=== PATIENT | male | born 1955 | race Caucasian/White ===

== ENCOUNTER → 2019-05-14 | Outpatient (CLI) | payer OTHER ==
[~2019-05-14] MED LIST: ALLO300 PO; AMLO10; Aspirin EC81 MG PO; ELIQUIS5 M2 PO; FURO20 PO; HYDR100 PO; LAVAP17G PO; LEVSOD125 PO; Multivitamin1 EAC1 PO; NEBI10 PO; NEBI5; POTASSIUM; Terazosin HCl10 MG; VERA180ERB PO
[2019-05-14 11:40] LABS: Hematocrit 38.8 % (37.0-53.0); Hemoglobin 13.2 g/dL (13.5-17.5); Mean Corpuscular HGB 30.4 pg (26.0-34.0); Mean Corpuscular Volume 89 fL (80-100); Mean Platelet Volume 12.1 fL (9.1-12.4); Platelet Count 110 K/mm3 (150-400); RDW Coefficient Variation 12.8 % (11.7-14.2); RDW Standard Deviation 41.7 fL (35.1-46.3); Red Blood Cell Count 4.34 M/mm3 (4.30-5.90); White Blood Cell Count 7.71 K/mm3 (4.00-11.30)
[2019-05-14 11:46] LABS: Albumin, Blood 3.3 g/dL (3.4-5.0); Albumin/Globulin Ratio 0.8 (0.8-1.8); Calcium, Blood 8.6 mg/dL (8.5-10.1); Creatinine, Blood 1.56 mg/dL (0.60-1.20); Potassium, Blood 4.3 mmol/L (3.5-5.5); Total Protein, Blood 7.3 g/dL (6.4-8.2)
[2019-05-14 12:40] LABS: BAND PERCENT MAN 13 % (0-8); BASOPHILS PERCENT MAN 0 % (0-2); EOSINOPHILS PERCENT MAN 0 % (0-6); LYMPHOCYTES ABSOLUTE MAN 0.46 K/mm3 (0.84-5.20); LYMPHOCYTES PERCENT MAN 6 % (21-46); MONOCYTES ABSOLUTE MAN 0.46 K/mm3 (0.16-1.47); MONOCYTES PERCENT MAN 6 % (4-13); NEUTROPHILS ABSOLUTE MAN 6.78 K/mm3 (1.96-9.15); SEG NEUTROPHILS PERCENT MAN 75 % (41-73); TOTAL CELLS COUNTED 100
== END ==
LOC: LAB EV 11:31 → LAB SHORT 11:31
PROVIDERS: Emergency Medicine
DX: R50.9 Fever, unspecified (principal)
CPT/HCPCS: 80053; 85025; 87040

== ENCOUNTER 2019-06-04 06:26 | Day surgery (SDC) | payer OTHER ==
[~2019-06-04] VITALS: Ht 180.3 cm; Wt 113.0 kg
--- NOTE | 2019-06-04 07:47 | NUR ---
PT TOLERATES CARDIOVERSION WELL. VSS. NADN. SINUS RHYTHM ON MONITOR. CALL LIGHT WITHIN REACH. FAMILY AT BEDSIDE.
== END 2019-06-04 22:59 | disposition home or self-care (01) ==
LOC: MHTC 06:26
DX: I48.4 Atypical atrial flutter (principal); I44.1 Atrioventricular block, second degree; I10 Essential (primary) hypertension; Z88.1 Allergy status to other antibiotic agents; Z79.899 Other long term (current) drug therapy
CPT/HCPCS: 92960; 93005; 93010; 93306; 99152; J2250; J3010; J7030

== ENCOUNTER 2019-12-11 05:52 | Day surgery (SDC) | payer MEDICARE, OTHER ==
[~2019-12-11] VITALS: Ht 180.3 cm; Wt 118.0 kg
[~2019-12-11 05:52] MED LIST changes: -AMLO10; +AMLO10 PO; -LEVSOD125 PO; +LEVSOD137 PO
[2019-12-11] MEDS ORDERED: POTA10T PO (06:27)
[2019-12-11] MEDS ORDERED: SPIR25 PO (06:28)
[2019-12-11] MEDS ORDERED: TERA5 PO (06:28)
--- NOTE | 2019-12-11 08:10 | NUR ---
PT TOLERATED CARDIOVERSION WELL. VSS. NADN. PT IV DC'D. CATH INTACT. PRESSURE DSG APPLIED. PT VERBALIZES UNDERSTANDING WRITTEN AND VERBAL ORDERS. PT DC TO HOME VIA S/O.
== END 2019-12-11 22:54 | disposition home or self-care (01) ==
LOC: MHTC 05:52
DX: I48.4 Atypical atrial flutter (principal); I48.91 Unspecified atrial fibrillation; I11.9 Hypertensive heart disease without heart failure; E78.00 Pure hypercholesterolemia, unspecified; E66.3 Overweight; Z88.1 Allergy status to other antibiotic agents; Z79.01 Long term (current) use of anticoagulants; Z79.899 Other long term (current) drug therapy; Z68.38 Body mass index [BMI] 38.0-38.9, adult
CPT/HCPCS: 92960; 93005; 93010; 99152; J2250; J3010; J7030

== ENCOUNTER → 2020-10-26 | Outpatient (CLI) | payer MEDICARE, OTHER ==
[~2020-10-26] MED LIST changes: +AMIODARONE HCL200 M1 PO; +LOSA50 PO; +POTA10T PO; +SPIR25 PO; +TERA5 PO
== END ==
LOC: LAB SHORT 09:12 → PLD 09:12
DX: D22.5 Melanocytic nevi of trunk (principal); D22.39 Melanocytic nevi of other parts of face
CPT/HCPCS: 88305

== ENCOUNTER 2021-05-21 11:16 | Day surgery (SDC) | payer MEDICARE, OTHER ==
[~2021-05-21] VITALS: Ht 182.9 cm; Wt 122.8 kg
[~2021-05-21 11:16] MED LIST changes: +EUTHYROX125 MCG PO; +LOSARTAN POTAS100 M1 PO; +TIZA4 PO; +TRAM50 PO
== END 2021-05-21 13:30 | disposition home or self-care (01) ==
LOC: ORSCSDS 11:16
PROVIDERS: Internal Medicine Gastroenterology
PROC: 0DBM8ZX Excision of Descending Colon, Via Natural or Artificial Opening Endoscopic, Diagnostic (ICD-10-PCS; principal; 2021-05-21 12:30)
PROC: 0DBE8ZX Excision of Large Intestine, Via Natural or Artificial Opening Endoscopic, Diagnostic (ICD-10-PCS; principal; 2021-05-21 12:30)
DX: R19.4 Change in bowel habit (principal); Z86.010 Personal history of colon polyps; D12.4 Benign neoplasm of descending colon; K57.30 Diverticulosis of large intestine without perforation or abscess without bleeding; I10 Essential (primary) hypertension; I48.91 Unspecified atrial fibrillation; Z79.01 Long term (current) use of anticoagulants; G47.33 Obstructive sleep apnea (adult) (pediatric); E03.9 Hypothyroidism, unspecified; Z79.899 Other long term (current) drug therapy; E66.01 Morbid (severe) obesity due to excess calories; Z68.36 Body mass index [BMI] 36.0-36.9, adult
CPT/HCPCS: 88305; J2704; J7120

== ENCOUNTER 2022-10-04 08:30 | Day surgery (SDC) | payer MEDICARE, OTHER ==
[~2022-10-04] VITALS: Ht 182.9 cm; Wt 126.3 kg
[~2022-10-04 08:30] MED LIST changes: +GABA300 PO; +TIMOLOL MALEATE BOTHEYES
--- NOTE | 2022-10-04 12:06 | NUR ---
PT BELONGINGS PLACED UNDERNEATH GURNEY FOR SAFEKEEPING. PT GLASSES TAKEN TO PACU FOR SAFEKEEPING.
--- NOTE | 2022-10-04 13:41 | NUR ---
10/04/22 1341 Iraida Richards PT TO OR WITH BRUISING AROND RIGHT KNEE
--- NOTE | 2022-10-04 16:10 | NUR ---
PT ARRIVED TO THE ROOM AT 1607. PT ALERT AND ORIENTED UPON ARRIVAL TO THE ROOM. PT REPORTS DISCOMFORT TO HIS L KNEE. PT PROVIDED WITH CRACKERS, APPLESAUCE AND FLUIDS. PT'S NOTIFIED OF ARRIVAL TO THE ROOM POST-OP.
--- NOTE | 2022-10-04 20:03 | NUR ---
PT REPORTED NUMBNESS TO LLE POST OP. PT ASSESSED. BILAT PEDAL AND TIBIAL PULSES FAINT BUT PRESENT AND EQUAL. PT IS ABLE TO PLANTAR AND DORSAL FLEX. SENSATION ASSESSED USING ALCOHOL WIPE AND PT REPORTED HE WAS ABLE TO FEEL COOL/WET SENSATION FROM HIS FOOT TO HIS LEG. PT REPORTS DECREASED SENSATION TO BLE SINCE IOVERA TREATMENT PRE OP. PT WAS ABLE TO AMBULATE TO THE BATHROOM AND BACK SAFELY WITH ASSISTANCE. LOWELL YOUNG NOTIFIED OF DECREASED SENSATION TO LLE. LOWELL YOUNG ALSO PROVIDED ORDERS FOR ABX POST OP.
--- NOTE | 2022-10-04 20:19 | NUR ---
SHIFT SUMMARY PT IS POD#0 FROM L TKA WITH DR. IVORY. PT HAS BEEN OOB TO THE CHAIR AND AMBULATED. PT ATTEMPTED TO VOID BUT WAS UNABLE. PAIN IS MINIMAL AND MANAGED WITH PO PAIN MEDICATION. PT IS TOLERATING PO. PT REPORTED DECREASED SENSATION TO LLE, PER LOWELL YOUNG THIS COULD BE R/T IOVERA TREATMENT PRE-OP OR INTRAOPERATIVE NERVE BLOCK. REPORT GIVEN TO AMADO MARY.
[2022-10-05 05:08] LABS: BASOPHILS PERCENT AUTO 0 % (0-2); EOSINOPHILS PERCENT AUTO 0 % (0-6); Hematocrit 38.7 % (37.0-53.0); Hemoglobin 12.7 g/dL (13.5-17.5); IMMATURE GRAN ABSOLUTE AUTO 0.06 K/mm3 (0.00-0.10); IMMATURE GRAN PERCENT AUTO 1 % (0-1); LYMPHOCYTES ABSOLUTE AUTO 0.34 K/mm3 (0.84-5.20); LYMPHOCYTES PERCENT AUTO 5 % (21-46); MONOCYTES ABSOLUTE AUTO 0.28 K/mm3 (0.16-1.47); MONOCYTES PERCENT AUTO 4 % (4-13); Mean Corpuscular HGB 29.8 pg (26.0-34.0); Mean Corpuscular HGB Conc 32.8 g/dL (31.5-36.5); Mean Corpuscular Volume 91 fL (80-100); Mean Platelet Volume 12.2 fL (9.1-12.4); NEUTROPHILS ABSOLUTE AUTO 6.56 K/mm3 (1.96-9.15); NEUTROPHILS PERCENT AUTO 91 % (41-73); Platelet Count 137 K/mm3 (150-400); RDW Coefficient Variation 12.9 % (11.7-14.2); RDW Standard Deviation 42.4 fL (35.1-46.3); Red Blood Cell Count 4.26 M/mm3 (4.30-5.90); White Blood Cell Count 7.24 K/mm3 (4.00-11.30)
[2022-10-05 05:42] LABS: Bun/Creatinine Ratio 24.9 (12.0-20.0); Calcium, Blood 8.3 mg/dL (8.5-10.1); Creatinine, Blood 0.85 mg/dL (0.60-1.20); Potassium, Blood 4.4 mmol/L (3.5-5.5)
--- NOTE | 2022-10-05 06:45 | NUR ---
PUNCH PRESS FEEDER SUMMARY PT IS POD 0 FOR A L TKA. PT HAS AMBULATED WITH A FWW AND MINIMAL ASSIST. TOLERATING PO AND HAS VOIDED MULTIPLE TIMES TONIGHT. MEDICATED WITH SCHEDULED TORADOL AND OXYCODONE X1 FOR BREAKTHROUGH PAIN. PT REPORTS SOME MINIMAL NUMBNESS TO L LEG BUT HAS FULL SENSATION TO LLE AND ABLE TO WIGGLE TOES. VSS, WILL CONTINUE TO MONITOR.
[2022-10-05] MEDS ORDERED: Percocet 5-3251 EACH PO (09:03)
--- NOTE | 2022-10-05 10:00 | NUR ---
DISCHARGE SUMMARY PT POD #1 FOR LTKA. AQUACEL DRESSINGS IN PLACE AND CDI. PT DENIES PAIN THIS AM AND WORKED WELL WITH PHYSICAL THERAPY. VSS. PT DC'D HOME WITH .
== END 2022-10-05 09:30 | disposition home or self-care (01) ==
LOC: ORSCMMR 08:30 → ORD 10:00 → SURS 15:59 → ORSCMMR 10-05 09:30
PROVIDERS: Orthopaedic Surgery
PROC: 8E0Y0CZ Robotic Assisted Procedure of Lower Extremity, Open Approach (ICD-10-PCS; principal; 2022-10-04 12:30)
PROC: 0SRD0JA Replacement of Left Knee Joint with Synthetic Substitute, Uncemented, Open Approach (ICD-10-PCS; principal; 2022-10-04 12:30)
DX: M17.12 Unilateral primary osteoarthritis, left knee (principal); I10 Essential (primary) hypertension; I50.9 Heart failure, unspecified; I48.91 Unspecified atrial fibrillation; G47.33 Obstructive sleep apnea (adult) (pediatric); E66.01 Morbid (severe) obesity due to excess calories; Z68.39 Body mass index [BMI] 39.0-39.9, adult; Z79.01 Long term (current) use of anticoagulants; Z79.899 Other long term (current) drug therapy
CPT/HCPCS: 27447; 20985; S2900; 36415; 73560-LT; 80048; 83735; 85025; 97110; 97116; 97162; A9270; C1776; J0171; J0690; J0735; J1100; J1885; J2250; J2405; J2704; J2795; J3010; J7120